=== PATIENT | female | born 1990 | race Caucasian/White ===

== ENCOUNTER 2016-04-27 20:27 | Emergency (ER) | payer OTHER ==
[2016-04-27] MEDS ORDERED: DEXAMETHASONE SOD PHOS 10 MG/1 ML VIAL ONE (22:03)
== END 2016-04-27 20:29 | disposition home or self-care (01) ==
LOC: ED 20:27
DX: J04.0 Acute laryngitis (principal); F17.210 Nicotine dependence, cigarettes, uncomplicated